=== PATIENT | female | born 1940 | race Caucasian/White ===

== ENCOUNTER 2017-11-29 13:40 | Observation (INO) | payer MEDICARE, SELFPAY ==
[~2017-11-29 13:40] MED LIST: ISOVUE-370 76%-LOCM 1 ML ONE
[2017-11-29 14:11] LABS: #Basophils 0.1 thou/uL (0.0-0.2); #Eosinphils 0.2 thou/uL (0.0-0.7); #Lymphocytes 1.6 thou/uL (1.20-3.40); #Monocytes 0.5 thou/uL (0.11-0.59); %Basophils 1.1 % (0.0-1.0); %Eosinophils 3.6 % (0.0-10.0); %Lymphocytes 25.2 % (21.0-51.0); %Monocytes 7.4 % (0.0-10.0); %Neutrophils 62.7 % (42.0-75.0); Hemoglobin 13.4 g/dL (12.0-16.0); Mean Corpuscular HGB CONC 33.8 g/dL (32.0-36.0); Mean Corpuscular Hemoglobin 29.4 pg (27.0-31.0); Mean Platelet Volume 7.6 fL (7.4-10.4); Platelet Count 187 thou/uL (130-400); RBC Distribution Width 11.6 % (11.5-14.5); Red Blood Cell (RBC) Count 4.58 mill/uL (4.20-5.40); White Blood Cell (WBC) Count 6.4 thou/uL (4.8-10.8)
[2017-11-29 14:16] LABS: INR-International Normal Ratio 0.9; PTT 24.4 SEC (22.9-36.1); Prothrombin Time 12.6 SEC (12.0-14.7)
[2017-11-29 14:28] LABS: CKMB 0.8 ng/mL (0-6.6); Troponin I Less than 0.010 ng/mL (< 0.028)
--- NOTE | 2017-11-29 15:15 | RAD ---
UPRIGHT PORTABLE CHEST 1 VIEW: HISTORY: A 77-year-old female with a history of chest pain. COMPARISON: 02/22/16. FINDINGS: Monitor leads overlie the chest. Minimal cardiomegaly. Atherosclerosis of the aorta with ectasia. No confluent pneumonia or overt edema. IMPRESSION: Borderline cardiomegaly. Atherosclerosis of the aorta with ectasia. No significant acute process. POS: [facility]
[2017-11-29 15:43] LABS: ALT (SGPT) 9 U/L (8-55); AST (SGOT) 14 U/L (5-34); Albumin 4.1 g/dL (3.4-4.8); Alkaline Phosphatase 66 U/L (40-150); Anion Gap 14 mmol/L (10-20); BUN (Urea Nitrogen) 17 mg/dL (9.8-20.1); Bilirubin, Total 0.5 mg/dL (0.2-1.2); CK (CPK) 58 U/L (29-168); Calc. Creatinine Clearance 0 mL/min (70-130); Calcium 9.5 mg/dL (7.8-10.44); Carbon Dioxide 24 mmol/L (23-31); Chloride 107 mmol/L (98-107); Estimated GFR-MDRD 58; Globulin 2.6 g/dL (2.4-3.5); Glucose 96 mg/dL (83-110); Lipase 20 U/L (8-78); Potassium 4.2 mmol/L (3.5-5.1); Protein, Total 6.7 g/dL (6.0-8.3); Sodium 141 mmol/L (136-145)
--- NOTE | 2017-11-29 17:00 | CT ---
CTA BRAIN AND CAROTIDS: Date: 11-29-17 Technique: Noncontrast enhanced CT images of the brain were obtained followed by contrast enhanced CT A of the carotid and brain. 2D and 3D reconstructed images performed on an independent 3D workstation . FINDINGS: The brain is unremarkable with no evidence of acute intracranial masses, hemorrhages, strokes or cont usions. Ventricles are of normal size. Carotid CTA: The lung parenchyma in the visualized portions are unremarkable. No evidence of filling defects seen in the pulmonary arteries. Calcification with some plaque is seen in the aortic arch. The right brachiocephalic artery is patent. The right and left common carotid arteries are patent without evidence of significant stenosis. There is some calcified and noncalcified plaques in the origin of the right ICA resulting in approxim ately 5th origin right ICA stenosis. More distally the right ICA is patent. Left ICA: Calcified and noncalcified plaque is seen in the origin of the left ICA resulting in approximately 50 % origin left ICA stenosis. More distally the left ICA is patent. The right and left vertebral arteries are patent. INTRACRANIAL CTA: Normal flow is seen in the right and left cavernous and supraclinoid ICA. Normal flow is seen in the anterior cerebral artery as well as the right and left middle cerebral arteries. The basilar artery is unremarkable. Normal flow is seen in the right and left posterior cerebral linda franny. No evidence of obvious vascular dissection is seen. POS: [facility]
--- NOTE | 2017-11-29 17:10 | CT ---
CONTRAST ENHANCED CT CHEST AND ABDOMEN: History: Chest pain. Technique: 2D and 3D reconstructed images performed on an independent 3D workstation. FINDINGS: The lung parenchyma demonstrates some areas of scarring in the lung bases. No other definite pulmonary parenchymal lesions seen. There is some right upper hilar lymphadenopathy. Calcifications and intimal thickening is seen in the aortic arch. Calcification is also seen in the distal left common carotid artery and LAD. The liver and spleen are unremarkable. Pancreas is unremarkable. The gallbladder is not definitely vi sualized and may have been surgically removed. The left kidney is unremarkable. The right kidney contains a likely cyst, diameter measuring approxim ately 4.2 x 4.7 cm. Some mild atherosclerotic plaque is seen in the abdominal aorta and iliac arteries. Some atherosclerotic plaque is seen in the origin of the left renal artery and to a lesser degree rig ht renal artery. No obvious osseous lesions are seen. IMPRESSION: 1. Atherosclerotic plaque seen in the thoracic and abdominal aorta as well as the origin of the renal arteries. 2. Coronary artery calcifications. POS: [facility]
[2017-11-29 17:46] LABS: Troponin I Less than 0.010 ng/mL (< 0.028)
[2017-11-29 18:24] VITALS: BMI 24.7
[2017-11-29] MEDS ORDERED: cloNIDine 0.1 MG TAB PO PRN ×2 (19:13→19:16)
[2017-11-29] MEDS ORDERED: Docusate 100 MG CAP PO PRN (19:20)
[2017-11-29] MEDS ORDERED: traMADol HCl 50 MG TAB PO PRN (19:20)
[2017-11-29] MEDS ORDERED: Bisacodyl 5 MG TAB PO PRN (19:20)
[2017-11-29] MEDS ORDERED: Acetaminophen 500 MG TAB PO PRN (19:20)
[2017-11-29] MEDS: Flecainide 50 MG TAB PO SCH (21:23)
[2017-11-29] MEDS: Metoprolol Tartrate 25 MG TAB PO SCH (21:23)
[2017-11-30 00:32] VITALS: TEMP 97.9
[2017-11-30 04:46] LABS: Troponin I 0.012 ng/mL (< 0.028)
[2017-11-30 05:00] VITALS: BP 140/66
[2017-11-30 05:00] LABS: Thyroid Stimulating Hormone 0.279 uIU/mL (0.35-4.94)
[2017-11-30 05:46] LABS: Free T4 (Free Thyroxine) 1.17 ng/dL (0.70-1.48)
[2017-11-30] MEDS ORDERED: Levothyroxine 150 MCG TAB PO SCH (06:00)
[2017-11-30] MEDS ORDERED: cloNIDine 0.1 MG TAB PO PRN (07:33)
--- NOTE | 2017-11-30 07:59 | DPRG ---
DATE OF SERVICE: 11/30/2017 The patient is doing well. She reports no chest pain. She is alert and oriented x3, no medical comp laints otherwise noted today. Her says she is feeling much better. PHYSICAL EXAMINATION: VITAL SIGNS: Blood pressure 109/55, pulse 54, O2 sats 94%. LUNGS: Clear. HEART: Reveals no murmur. EXTREMITIES: No clubbing, edema or cyanosis. Troponin studies are all within normal limits. IMPRESSION: Acute hypertensive crisis, now resolved. PLAN: She may be discharged home today. DISCHARGE MEDICATIONS: She will be discharged home on her home medications which will be Tylenol, as pirin, Dulcolax, clonidine 0.1 mg every 4 hours as needed for hypertension, Plavix 75 mg daily, losar leon 100 mg daily, isosorbide 30 mg daily, Namenda 20 mg p.o. at bedtime, flecainide 50 mg p.o. b.i.d. , sertraline 50 mg daily, levothyroxine 150 mcg p.o. daily, and amlodipine 5 mg daily. HOSPITAL COURSE: She will be seen in follow up with me in approximately 1 month.
[2017-11-30] MEDS: Flecainide 50 MG TAB PO SCH (08:22)
[2017-11-30] MEDS: Metoprolol Tartrate 25 MG TAB PO SCH (08:22)
[2017-11-30] MEDS ORDERED: Losartan 25 MG TAB PO SCH ×2 (09:00→21:00)
[2017-11-30] MEDS ORDERED: Amlodipine 5 MG TAB PO SCH (09:00)
[2017-11-30] MEDS ORDERED: Clopidogrel Bisulfate 75 MG TAB PO SCH ×2 (09:00)
[2017-11-30] MEDS ORDERED: Aspirin 325 mg Enteric Coated Tablet PO SCH (09:00)
--- NOTE | 2017-11-30 10:41 | HP ---
DATE OF SERVICE: 11/29/2017 PRIMARY CARE PHYSICIAN: Brett Paula M.D. CHIEF COMPLAINT: Hypertension. HISTORY OF PRESENT ILLNESS: The patient lives at home with the daughter and spouse present stated sh e felt like "she was going to ." The patient with longstanding history of dementia and blood pres sure instability. Dr. Godoy has followed her regarding Cardiology and blood pressure management. She has been maintained on clonidine p.r.n. Her last prescription was approximately 2 years ago despite medication being to continue to use medication; however, they are almost out. Her blood pre ssure was in the 200s systolic at that point in time when she felt symptoms. She is unable to furthe r elucidate her symptoms, although denying chest pain, shortness of breath. On arrival to emergency room, after the clonidine, her blood pressure had come down to one teens systolic and promptly mario alberto b ack up to 190 systolic by the time of arrival to floor. The patient remained asymptomatic at that po int in time was given another dose of p.r.n. clonidine by nursing staff. The patient's spouse and tur marin deny any signs or symptoms of infection, states she has had a fall recently, has not undergone physical therapy in recent months. FORMAL REVIEW OF SYSTEMS: No fevers, no chills, no chest pain, no palpitations, no shortness of roosevelt th, no cough, no vision changes, no headache. Positive dizziness. Positive falls. Positive trace l ower extremity edema. No diarrhea, no constipation, no nausea, no vomiting. Positive memory loss. No skin breakdown or ulcerations. On review of past medical, social, surgical history includes allergy of PENICILLIN and SULFA, hyperte nsion, dementia. Prior medical history hypothyroidism, depression. Surgeries include appendectomy, back surgery, bladder cancer, polyp removal, cholecystectomy, dilation and curettage, foot surgery, h ysterectomy with bilateral oophorectomy. The patient is a nonsmoker, nondrinker, lives with spouse a nd daughter, social support visits frequently. Vital signs on arrival to floor; temperature of 97.5, pulse of 66, respiratory rate of 16, oxygen sat uration 95% on room air, blood pressure 190/84. Following clonidine repeat blood pressure of 164/77. REVIEW OF LABORATORY WORK: White blood cell count of 6.4, hematocrit of 39.8, platelet count of 187. INR 0.9. Troponins x2 of 0.01. Sodium of 142, potassium of 4.2, CO2 of 24, BUN of 19, creatinine of 0.93, blood glucose of 96, AST 14, ALT of 9, albumin of 4.1. IMAGING: Chest x-ray borderline cardiomegaly, atherosclerosis of the aorta, no acute cardiopulmonary events. CT aorta, dissection ruled out. No significant findings other than atherosclerotic plaques , which extend down to renal arteries and calcifications. No dissection. [place] of [place] CT angiog sasha, no stenosis of internal carotids bilaterally. Left ICA with 50% stenosis. However, normal flow pattern reported to the right and left cavernous and supraclinoid seen, basilar artery unremarkable. No obvious dissection found with [place], no hemorrhagic component found. PHYSICAL EXAMINATION: GENERAL: The patient is alert, pleasant, in no acute distress. HEENT: Normocephalic, atraumatic. Extraocular movements are intact. Sclerae are clear. NECK: Supple, nontender. Oral mucosa is moist. HEART: Regular rate and rhythm. No murmurs auscultated. LUNGS: Clear to auscultation bilaterally. No rubs or wheezes. ABDOMEN: Protuberant, soft; however, nontender. EXTREMITIES: Lower extremities with trace pitting edema. Lack of hair over bilateral shins. Dorsal is pedis pulses are intact bilaterally. NEUROLOGIC: The patient is alert and oriented x1. No focal deficits. Speech is normal. Pleasant r esponding to commands easily. ASSESSMENT AND PLAN: Hypertensive urgency, following up troponin trend, currently negative. We will await one further troponin, refill the patient's clonidine. We will defer to Dr. Paula's decision m aking for any further blood pressure medication changes. The patient is quite labile at this point i n time; however, risk of hypotension with increase of current medications or addition to was discusse d with family members, they feel likely comfortable likely discharge tomorrow with renewed clonidine prescription, also has follow up with Dr. Godoy for 6-week followup in the next month here. We will f ollow up thyroid studies and urinalysis for any signs or symptoms of infection. The patient is not c omplaining of patient to be a good candidate for home health physical therapy for conditioning, so she does not fall. Encouraged family to get her eye exam she is due as well. Discussed pr essure rating or compression stockings for additional support.
[2017-11-30] MEDS ORDERED: Aspirin 325 MG TAB PO SCH (21:00)
== END 2017-11-30 10:05 | disposition home or self-care (01) ==
LOC: ERS 13:40 → 2SW 17:23
PROVIDERS: ADMIT Family Medicine; ATTEND Family Medicine
DX: I16.9 Hypertensive crisis, unspecified (principal); I10 Essential (primary) hypertension; F03.90 Unspecified dementia, unspecified severity, without behavioral disturbance, psychotic disturbance, mood disturbance, and anxiety; E03.9 Hypothyroidism, unspecified; F32.9 Major depressive disorder, single episode, unspecified; Z88.0 Allergy status to penicillin; Z88.2 Allergy status to sulfonamides
CPT/HCPCS: 70496; 70498; 71045; 71275; 80053; 82550; 82553; 83690; 83880; 84439; 84443; 84481; 84484 ×3; 85025; 85610; 85730; 93005; 99285; G0378; 36415; A4216